=== PATIENT | male | born 2000 | race Hispanic/Latino ===

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

== ENCOUNTER 2021-10-12 10:58 | Emergency (ER) | payer OTHER ==
[~2021-10-12] VITALS: Ht 170.2 cm; Wt 95.2 kg
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
[2021-10-12] MEDS ORDERED: EXCEDRIN EXTRA1 EAC1 PO (14:31)
[2021-10-12] MEDS ORDERED: ONDANSETRON ODT8 MG PO (14:50)
== END 2021-10-12 15:27 | disposition home or self-care (01) ==
LOC: ED 10:58
DX: S06.0X9A Concussion with loss of consciousness of unspecified duration, initial encounter (principal); V43.52XA Car driver injured in collision with other type car in traffic accident, initial encounter
CPT/HCPCS: 99283